=== PATIENT | female | born 1975 | race Caucasian/White ===

== ENCOUNTER 2018-03-24 21:28 | Emergency (ER) | payer OTHER ==
[2018-03-24 21:32] VITALS: BP 143/87; PULSE 80; TEMP 98; BMI 30.7
[2018-03-24] MEDS ORDERED: KETOROLAC TROMETHAMINE 60 MG/2 ML VIAL IM ONE (22:08)
[2018-03-24] MEDS ORDERED: KETOROLAC TROMETHAMINE 60 MG/2 ML VIAL ONE (22:09)
--- NOTE | 2018-03-24 22:13 | PDOC ---
History of Present Illness - General Chief Complaint: Pain Stated Complaint: LT ARM PAIN Time Seen by Provider: 03/24/18 21:39 History Source: Patient Exam Limitations: No Limitations - History of Present Illness Initial Comments: 03/24/18 22:08 Patient states had a severe case of bronchitis last week with severe coughing which causes severe spasm to her neck. States is radiating pain down her left shoulder and arm. States was seen by her PMD who gave her cyclobenzaprine and ibuprofen. Also treated with a taper pack of prednisone due to significant reactive airway from bronchitis. Patient states cough is improved however neck is progressively worsened. 03/24/18 22:54 Occurred: reports: last week Severity: reports: moderate, severe Pain Location: reports: neck, upper extremity (ideating pain from neck spasm into left arm) Associated Symptoms (Fall): headache, neck pain Past History - Travel Traveled outside of the country in the last 30 days: No Close contact w/someone who was outside of country & ill: No - Past Medical History Allergies/Adverse Reactions: Allergies Allergy/AdvReac Type Severity Reaction Status Date / Time No Known Allergies Allergy Verified 03/24/18 21:32 Home Medications: Ambulatory Orders Methocarbamol [Robaxin -] 1,500 mg PO Q8H PRN #20 tablet 03/24/18 Naproxen [Naprosyn -] 500 mg PO TID #30 tablet 03/24/18 Disorders: Yes (KIDNEY STONES.) - Surgical History Abdominal Surgery: Yes (TUMMY TUCK.) - Suicide/Smoking/Psychosocial Hx Smoking History: Never smoked Have you smoked in the past 12 months: No Number of Cigarettes Smoked Daily: 20 Information on smoking cessation initiated: No Hx Alcohol Use: No Drug/Substance Use Hx: No Substance Use Type: None Trauma Specific PMHX - Complaint Specific PMHX Back Injury: No Neck Injury: Yes Review of Systems - Review of Systems Able to Perform ROS?: Yes Is the patient limited Vietnamese proficient: Yes Constitutional: Yes: Symptoms Reported, See HPI, Malaise. No: Fever HEENTM: Yes: See HPI. No: Symptoms Reported Respiratory: Yes: Symptoms reported, See HPI. No: Cough, Orthopnea, Wheezing Musculoskeletal: Yes: Symptoms Reported, See HPI, Neck Pain, Joint Stiffness Neurological: Yes: Symptoms reported, See HPI All Other Systems: Reviewed and Negative *Physical Exam - Vital Signs Last Vital Signs Temp Pulse Resp BP Pulse Ox 98.0 F 80 16 143/87 98 03/24/18 21:29 03/24/18 21:29 03/24/18 21:29 03/24/18 21:29 03/24/18 21:29 - Physical Exam General Appearance: Yes: Nourished, Appropriately Dressed, Apparent Distress, Moderate Distress HEENT: positive: FREDY, Normal ENT Inspection, TMs Normal, Pharynx Normal Neck: positive: Tender, Supple, Other (patient with tight tense musculature on primarily left side extending from insertions of the sternocleidomastoid to upper trapezius. Able to reproduce pain to left arm with pressure tenderness at midpoint and insertion sites. Range of motion to left shoulder is reduced secondary to the spasm. Able to bend and and extend at elbow, strong grasp at hand) Respiratory/Chest: positive: Lungs Clear, Normal Breath Sounds. negative: Wheezing Musculoskeletal: positive: Normal Inspection, Muscle Spasm (Spasm noted to the paravertebral spinous muscles worse on the left, and very tight tense musculature. Able to reproduce tenderness with point rest or at midpoint trapezius that re-creates left arm pain.). negative: CVA Tenderness (L), Vertebral Tenderness Extremity: positive: Normal Capillary Refill, Tender (at shoulder, neurovascular intact to hand and arm.). 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 Patient has inversion to narcotics as has history of issues therefore will hold Valium and Percocet for severe pain and spasm and refer to PMD tomorrow for hopeful physical therapy. *DC/Admit/Observation/Transfer Diagnosis at time of Disposition: Torticollis - Discharge Dispostion Disposition: HOME Condition at time of disposition: Stable Decision to Admit order: No - Prescriptions Prescriptions: Methocarbamol [Robaxin -] 1,500 mg PO Q8H PRN #20 tablet PRN Reason: Muscle Spasms Naproxen [Naprosyn -] 500 mg PO TID #30 tablet - Referrals Referrals: Shaila Palafox [Primary Care Provider] - - Patient Instructions Printed Discharge Instructions: DI for Cervical Muscle Strain Additional Instructions: Rest, no heavy lifting or exercise until pain is resolved Hot soaks to neck and low back as often as possible/hot showers or Jacuzzis No massage or therapy until spasm is gone Continue Naprosyn 500 mg tablet, 1 tablet every 8 hours for the next 3 days then as needed for pain and swelling Robaxin 1500 mg tablet every 8 hours as needed that for 2 days then reduce to 750 mg as needed for spasm If not significant improvement within 24 hours with medication and rest regime, followup with private physician for change in medications and /or therapy. - Post Discharge Activity Forms/Work/School Notes: Back to Work
== END 2018-03-24 22:41 | disposition home or self-care (01) ==
LOC: JERFT 21:28
PROC: 3E0233Z Introduction of Anti-inflammatory into Muscle, Percutaneous Approach (ICD-10-PCS; principal; 2018-03-24)
DX: G24.3 Spasmodic torticollis (principal)
CPT/HCPCS: 99281-25

== ENCOUNTER 2019-05-03 20:06 | Emergency (ER) | payer OTHER ==
[2019-05-03 20:14] VITALS: BMI 31.6
--- NOTE | 2019-05-03 20:36 | PDOC ---
History of Present Illness - General Chief Complaint: Diarrhea Stated Complaint: LEFT TOE INFECTION Time Seen by Provider: 05/03/19 20:34 History Source: Patient Exam Limitations: No Limitations - History of Present Illness Initial Comments: Pt is a 43 yo F, with no significant PMH, who is presenting with complaints of diffuse, frothy, foul-smelling diarrhea x2 days. Pt states she has had a L great toe infection x1 month (ingrown toenail removal during a pedicure), initially treated with 7 days of bactrim and the symptoms improved. This week the pain and swelling in her L great toe returned, and she saw her crusher setter ( Dr. Sands). The crusher setter obtained x-ray of the L foot, which was concerning for "haziness around the base of the L toe" per patient, and he placed her on keflex TID. She also had outpatient labs drawn, but has not received the results. The pt states she has had diarrhea x2 days after starting the keflex, mild rash on her face, and is unable to keep down PO foods or fluid due to nausea and the diffuse diarrhea. The diarrhea is associated with crampy abdominal pain, which resolves with the diarrhea. Her toe continues to have purulent drainage and swelling. Pt denies any fevers/chills, headache, vision changes, syncope, chest pain, palpitations, SOB, vomiting, urinary symptoms, constipation, or leg swelling. Allergies: NKDA PCP: Dr. Wade Podiatry: Sh[facility]on Social: Pt denies any cigarette, alcohol, or drug use. Pt denies any recent travel or sick contacts. Surgical: no relevant history. Family: no relevant history. 05/03/19 21:24 Past History - Travel Traveled outside of the country in the last 30 days: No Close contact w/someone who was outside of country & ill: No - Past Medical History Allergies/Adverse Reactions: Allergies Allergy/AdvReac Type Severity Reaction Status Date / Time No Known Allergies Allergy Verified 05/03/19 20:14 Home Medications: Ambulatory Orders Methocarbamol [Robaxin -] 1,500 mg PO Q8H PRN #20 tablet 03/24/18 Naproxen [Naprosyn -] 500 mg PO TID #30 tablet 03/24/18 COPD: No Disorders: Yes (KIDNEY STONES.) - Surgical History Abdominal Surgery: Yes (TUMMY TUCK.) - Suicide/Smoking/Psychosocial Hx Smoking History: Former smoker Have you smoked in the past 12 months: No Number of Cigarettes Smoked Daily: 20 Information on smoking cessation initiated: No Hx Alcohol Use: No Drug/Substance Use Hx: No Substance Use Type: None Abd/GI Specific PMHX - Complaint Specific PMHX Colitis: No Diverticulitis: No Gall Bladder Disease: No GERD: No Hepatitis: No Irritable Bowel Synd (IBS): No Pancreatitis: No GI Ulcer Disease: No Review of Systems - Review of Systems Able to Perform ROS?: Yes Is the patient limited Malawian proficient: No Constitutional: Yes: Weight Stable. No: Chills, Diaphoresis, Fever, Loss of Appetite, Malaise, Weakness HEENTM: No: Blurred Vision, Double Vision, Nose Congestion, Throat Pain, Throat Swelling Respiratory: No: Cough, Orthopnea, Shortness of Breath Cardiac (ROS): No: Chest Pain, Edema, Irregular Heart Rate, Lightheadedness, Palpitations, Syncope, Chest Tightness ABD/GI: Yes: Diarrhea (frothy, diffuse, foul-smelling), Nausea, Abdominal cramping (associated after eating and with diarrhea). No: Abdominal Distended, Constipated, Poor Appetite, Poor Fluid Intake, Vomiting : No: Burning, Dysuria, Frequency, Flank Pain, Pain, Urgency Musculoskeletal: Yes: See HPI, Joint Pain (L first great toe), Joint Swelling. No: Back Pain, Muscle Pain, Muscle Weakness Integumentary: Yes: See HPI, Erythema. No: Bruising, Rash Neurological: No: Headache, Numbness, Paresthesia, Weakness, Dizziness Psychiatric: No: Sleep Pattern Change, Change in Appetite Endocrine: No: Increased Urine, Change in Weight Hematologic/Lymphatic: No: Anemia, Blood Clots, Easy Bleeding, Easy Bruising All Other Systems: Reviewed and Negative *Physical Exam - Vital Signs Last Vital Signs Temp Pulse Resp BP Pulse Ox 97.8 F 74 18 154/90 98 05/03/19 20:11 05/03/19 20:11 05/03/19 20:11 05/03/19 20:11 05/03/19 20:11 - Physical Exam Comments: Vitals stable, pt afebrile. Pt in NAD, obese body habitus. Pt alert and oriented x3. narrative writer generally intact, muscular strength and sensation intact. No midline spinal tenderness, step-offs, or crepitus. Head normocephalic, atraumatic. Eyes PERRLA, EOMI. Oropharynx without erythema or exudates, no LAD b/l. No nasal congestion, hearing intact. Clear heart sounds, S1/S2, no JVD, b/l pedal edema, or heart murmur. Clear lung sounds, no respiratory distress, wheezes, crackles, or accessory muscle use. No abdominal or CVA tenderness to palpation, no rebound, no guarding. Abdomen soft, non-distended, and with hyperactive bowel sounds. Edema to L first great toe, mild erythema of medial nailbed, with no active drainage at this time. No erythematous streaking down the toe or foot. Skin otherwise without jaundice or rash. 05/03/19 21:06 ED Treatment Course - LABORATORY CBC & Chemistry Diagram: 05/03/19 21:07 05/03/19 21:07 Medical Decision Making - Medical Decision Making Pt was seen at bedside, also will be seen by attending Dr. Cherry. Pt presenting with complaints of diffuse, frothy, foul-smelling diarrhea x2 days. Pt states she has had a L great toe infection x1 month (ingrown toenail removal during a pedicure), initially treated with 7 days of bactrim and the symptoms improved. This week the pain and swelling in her L great toe returned, and she saw her crusher setter (Dr. Sands). The crusher setter obtained x-ray of the L foot, which was concerning for "haziness around the base of the L toe" per patient, and he placed her on keflex TID. She also had outpatient labs drawn, but has not received the results. The pt states she has had diarrhea x2 days after starting the keflex, mild rash on her face, and is unable to keep down PO foods or fluid due to nausea and the diffuse diarrhea. The diarrhea is associated with crampy abdominal pain, which resolves with the diarrhea. Her toe continues to have purulent drainage and swelling. Pt denies any fevers/chills, headache, vision changes, syncope, chest pain, palpitations, SOB, vomiting, urinary symptoms, constipation, or leg swelling. Diffuse diarrhea 2/2 to abx, potential C diff, obtaining stool culture and C diff Ag. Will also obtain foot x-ray and labs to eval for infection, inflammation vs osteolmyelitis (CBC, CMP, ESR, CRP). Provided 1 L IV NS and 1 g IV ofirmev for improvement of pain and likely dehydration. Will continue to reassess pt and monitor for symptomatic improvement. 05/03/19 21:08 CBC and CMP WNL CRP <.03 Urine negative Pt taken for foot x-ray 05/03/19 21:59 X-ray showed no sign of acute fractures or joint deformities. Placed f/u call for stool culture/c-diff; pt advised to take probiotic. Will stop pts keflex, and have her f/u with PCP and crusher setter. No active cellulitis noted at this time. Pt can be discharged to home with strict return precautions provided. 05/03/19 23:26 *DC/Admit/Observation/Transfer Diagnosis at time of Disposition: Antibiotic causing adverse effect Diarrhea Qualifiers: Diarrhea type: unspecified type Qualified Code(s): R19.7 - Diarrhea, unspecified - Discharge Dispostion Disposition: HOME Condition at time of disposition: Good Decision to Admit order: No - Referrals Referrals: Kelby Monroe [Staff Physician] - Matthew Wade MD [Staff Physician] - - Patient Instructions Printed Discharge Instructions: DI for Diarrhea and Traveler's Diarrhea -- Adult Additional Instructions: You were seen in the ER today for diarrhea after taking antibiotics. The results of your labs and imaging today were normal. Please follow-up with your primary care doctor and crusher setter within 1-2 days to discuss your visit and make sure your symptoms have improved. Please return to the ER if you have any worsening pain, worsening redness or drainage from your toe, development of fevers or chills, loss of consciousness, inability to tolerate food or fluids, or any other concerns. - Post Discharge Activity
[2019-05-03] MEDS ORDERED: SODIUM CHLORIDE 1,000 ML IV STA (20:53)
[2019-05-03] MEDS ORDERED: ACETAMINOPHEN 1000 MG/100 ML VIAL (NON FORMULARY) IVPB ONE (20:53)
[2019-05-03] MEDS ORDERED: ACETAMINOPHEN INJECTION 100 ML IVPB ONE (21:00)
[2019-05-03 21:29] LABS: BASO % 0.5 % (0-2.0); EOS % 1.9 % (0-4.5); HEMATOCRIT 36.4 % (32.4-45.2); HEMOGLOBIN 12.3 GM/dL (10.7-15.3); LYMPH % 35.2 % (8-40); MCH 28.3 pg (25.7-33.7); MCHC 33.7 g/dl (32.0-36.0); MEAN CELL VOLUME 83.9 fl (80-96); MEAN PLT VOLUME 7.2 fl (7.5-11.1); MONO % 5.7 % (3.8-10.2); NEUT % 56.7 % (42.8-82.8); PLATELET COUNT 284 K/MM3 (134-434); RBC 4.34 M/mm3 (3.60-5.2); RDW 13.4 % (11.6-15.6); WHITE BLOOD COUNT 6.8 K/mm3 (4.0-10.0)
[2019-05-03 21:46] LABS: ALBUMIN 3.8 g/dl (3.4-5.0); ALK PHOS 41 U/L (45-117); ANION GAP 3 MMOL/L (8-16); BILIRUBIN,TOTAL 0.1 mg/dL (0.2-1); BLOOD UREA NITROGEN 10.7 mg/dL (7-18); CALCIUM 8.9 mg/dL (8.5-10.1); CHLORIDE 107 mmol/L (98-107); CO2 30 mmol/L (21-32); CREATININE 0.8 mg/dL (0.55-1.3); GLUCOSE,RANDOM 97 mg/dL (74-106); POTASSIUM 4.2 mmol/L (3.5-5.1); SGOT/AST 16 U/L (15-37); SGPT/ALT 27 U/L (13-61); SODIUM 141 mmol/L (136-145); TOT PROT 7.1 g/dl (6.4-8.2)
[2019-05-03 22:03] VITALS: PULSE 60
--- NOTE | 2019-05-03 23:41 | PDOC ---
Documentation entered by Mayra Bazzi SCRIBE, acting as scribe for Clint Cherry MD. Clint Cherry MD: This documentation has been prepared by the Rose Mary robles Nirvannie, SCRIBE, under my direction and personally reviewed by me in its entirety. I confirm that the documentation accurately reflects all work, treatment, procedures, and medical decision making performed by me. Attending Attestation - Resident Resident Name: KristalCornelia - ED Attending Attestation I have performed the following: I have examined & evaluated the patient, The case was reviewed & discussed with the resident, I agree w/resident's findings & plan, Exceptions are as noted - HPI HPI: 05/03/19 21:39 The patient is a 43 year old female, with a significant past medical history of kidney stones, who presents to the emergency department with 4 days persistent, watery, foul-smelling diarrhea with associated weakness, nausea, and headache. Pt has been undergoing treatment for a L 1st toe infection. She states that she developed an infection after a pedicure last month. Since then, she has completed a course of bactrim and was recently started on keflex by her demo specialist. After starting the keflex, she began to experience profuse watery diarrhea. Pt also notes that her demo specialist got a X ray of her toe and started her on the keflex because of a possible bone infection. Pt denies F/C. States that her toe feels significantly better. Allergies: NKDA - Physicial Exam PE: 05/03/19 21:39 GENERAL: Awake, alert, and fully oriented, in no acute distress. HEAD: No signs of trauma EYES: PERRLA, EOMI, sclera anicteric, conjunctiva clear ENT: Auricles normal inspection, hearing grossly normal, nares patent, oropharynx clear without exudates. Moist mucosa NECK: Nontender, no stepoffs, Normal ROM, supple, no lymphadenopathy, JVD, or masses LUNGS: Breath sounds equal, clear to auscultation bilaterally. No wheezes, and no crackles HEART: Regular rate and rhythm, normal S1 and S2, no murmurs, rubs or gallops ABDOMEN: Soft, nontender, normoactive bowel sounds. No guarding, no rebound. No masses EXTREMITIES: + L 1st toe with mild tenderness, no erythema, no induration, no fluctuance, no drainage, Normal range of motion, no edema. No clubbing or cyanosis. NEUROLOGICAL: Cranial nerves II through XII intact. 5/5 strength and sensation in all extremities, Normal speech, normal gait, normal cerebellar function SKIN: Warm, Dry, normal turgor, no rashes or lesions noted. - Medical Decision Making 05/03/19 23:33 43 F with diarrhea, likely 2/2 abx use. Pt with no fevers, benign abdomen. Low suspicion for C diff colitis, but will send stool studies. Pt's toe does not appear infected at this time. Will obtain XR to r/o osteo, though extremely low suspicion. - Labs - C diff studies - XR L toes 05/03/19 23:34 Labs wnl, no leukocytosis XR negative for osteo Will DC keflex as it is likely causing pt's severe diarrhea Hold tx for C diff for now, pending stool studies Pt is well appearing, with normal vitals. Clinically stable for DC at this time. I discussed the physical exam findings, ancillary test results and final diagnoses with the patient. I answered all of the patient's questions. The patient was satisfied with the care received and felt comfortable with the discharge plan and treatment plan. The patient agrees to follow up with the primary care physician within 24-72 hours.
[2019-05-04 00:03] LABS: ERYTHROCYTE SEDIMENTATION RATE 2 mm/hr (0-20)
[2019-05-04 00:05] VITALS: BP 125/77; TEMP 98.9
--- NOTE | 2019-05-04 11:17 | EKG ---
Test Reason : Blood Pressure : / mmHG Vent. Rate : 062 BPM Atrial Rate : 062 BPM P-R Int : 188 ms QRS Dur : 076 ms QT Int : 412 ms P-R-T Axes : 061 023 016 degrees QTc Int : 418 ms NORMAL SINUS RHYTHM NORMAL ECG WHEN COMPARED WITH ECG OF 29-DEC-2001 17:25, NO SIGNIFICANT CHANGE WAS FOUND Confirmed by HUMBERTO BROWN MD ([id number]) on 05/04/2019 11:16:38 AM Referred By: Confirmed By:HUMBERTO BROWN MD
== END 2019-05-04 00:17 | disposition home or self-care (01) ==
LOC: JER 20:06
PROC: 3E033NZ Introduction of Analgesics, Hypnotics, Sedatives into Peripheral Vein, Percutaneous Approach (ICD-10-PCS; principal; 2019-05-03)
PROC: 3E0337Z Introduction of Electrolytic and Water Balance Substance into Peripheral Vein, Percutaneous Approach (ICD-10-PCS; 2019-05-03)
DX: R19.7 Diarrhea, unspecified (principal); T50.905A Adverse effect of unspecified drugs, medicaments and biological substances, initial encounter; Y92.89 Other specified places as the place of occurrence of the external cause
CPT/HCPCS: 36415; 73630-TC-LT; 80053; 84703; 85025; 85651; 86140; 87045; 87046; 87324; 87449; 93005; 93010; 99283-25; J0131; J7030

== ENCOUNTER 2019-07-25 16:56 | Emergency (ER) | payer OTHER ==
[2019-07-25 17:08] VITALS: BP 152/85; PULSE 63; BMI 30.7
[2019-07-25] MEDS ORDERED: ACETAMINOPHEN 1000 MG/100 ML VIAL (NON FORMULARY) IVPB ONE (17:56)
[2019-07-25] MEDS ORDERED: LACTATED RINGERS SOLUTION 1000 ML INFUS.BAG IV ONE (17:56)
[2019-07-25] MEDS ORDERED: ACETAMINOPHEN INJECTION 100 ML IVPB ONE (18:07)
--- NOTE | 2019-07-25 18:08 | PDOC ---
Attending Attestation - Resident Resident Name: Libra Farris - ED Attending Attestation I have performed the following: I have examined & evaluated the patient, The case was reviewed & discussed with the resident, I agree w/resident's findings & plan, Exceptions are as noted - HPI HPI: 07/25/19 18:14 Ms. Rand is a 43 yo F who presents to the ER with a complaint headache Pt has a history of kidney stones she has noted a right sided headache that has been present for the past 2 days No head trauma No fevers or chills Pain is described as throbbing, No photophobia, phonophobia, or N/V. Pt has been taking Tylenol and would not have come in to the ER today had she not been noted to have right facial drooping Pt reports that the facial drooping was present for 30 minutes and self resolved 07/25/19 18:17 - Physicial Exam PE: 07/25/19 18:08 GENERAL: The patient is in no acute distress. HEAD: Normal EYES: PERRLA, EOMI, sclera anicteric, conjunctiva clear. ENT: Ears normal, nares patent, oropharynx clear without exudates. Moist mucous membranes. NECK: Normal range of motion, supple LUNGS: Breath sounds equal, clear to auscultation bilaterally. HEART:Regular rate and rhythm, normal S1 and S2 without murmur, rub or gallop. ABDOMEN: Soft, nontender, normoactive bowel sounds. EXTREMITIES: Normal range of motion, no edema. NEUROLOGICAL: Cranial nerves II through XII grossly intact. Normal speech. No focal neurological deficits. MUSCULOSKELETAL: Back non-tender to palpation, no CVA tenderness SKIN: Warm, Dry, normal turgor, no rashes or lesions noted. - Medical Decision Making 07/25/19 18:17 Pt presenting with a complaint of headache no head trauma or fevers Pt does note facial drooping which has resolved Will do: Labs IV Tylenol/Reglan CT head Re Assess 07/25/19 19:01 Laboratory Tests 07/25/19 07/25/19 18:09 18:09 WBC 7.5 Hgb 12.2 Hct 36.4 Plt Count 281 BUN 13.3 Creatinine 0.7 Called by the lab re potassium being 8, grossly hemolyzed Will do repeat CMP Pt states she has a strong family history of aneurysm Will plan to do CT with contrast Will re asses 07/25/19 20:55 EKG: Twelve-lead EKG was performed and reviewed by me. There is normal sinus rhythm with a normal rate. The axis is normal. The intervals are normal. There are no ST or T wave abnormalities. Impression: Normal twelve-lead EKG CT head - negative CTA head - no aneurysm found Headache has resolved Will discharge to home
[2019-07-25] MEDS ORDERED: METOCLOPRAMIDE HCL INJECTION 10 MG/2 ML VIAL IVPB ONE (18:10)
--- NOTE | 2019-07-25 18:10 | PDOC ---
History of Present Illness - General Chief Complaint: Headache Stated Complaint: HEADACHE Time Seen by Provider: 07/25/19 17:34 History Source: Patient Exam Limitations: No Limitations - History of Present Illness Initial Comments: 07/25/19 18:04 43 yo F PMH kidney stones, presenting with headache. Notably, was at our ED 2.5 months ago with diarrhea after getting Keflex for a toe infection. States that it has been there for the past 2 days, R sided, without photophobia, phonophobia , or N/V. Notably, experienced R facial droop, witnessed by daughter, lasting about 30-60 minutes, which is what prompted her to come in. This droop has since resolved. Patient reports that she had L middle finger pain under the nail yesterday, peeled it back, and released a lot of green pus. Put prior ointment from toe infection on it. Reports that multiple family members have had brain aneurysms. Specifically denies CP, SOB, abdominal pain, fevers/chills, constipation/ diarrhea. Past History - Past Medical History Allergies/Adverse Reactions: Allergies Allergy/AdvReac Type Severity Reaction Status Date / Time No Known Allergies Allergy Verified 05/03/19 20:14 Home Medications: Ambulatory Orders Methocarbamol [Robaxin -] 1,500 mg PO Q8H PRN #20 tablet 03/24/18 Naproxen [Naprosyn -] 500 mg PO TID #30 tablet 03/24/18 COPD: No Disorders: Yes (KIDNEY STONES.) - Surgical History Abdominal Surgery: Yes (HIPOLITO CAICEDO.) - Psycho Social/Smoking Cessation Hx Smoking History: Never smoked Have you smoked in the past 12 months: No Number of Cigarettes Smoked Daily: 20 Hx Alcohol Use: No Drug/Substance Use Hx: No Substance Use Type: None Review of Systems - Review of Systems Able to Perform ROS?: Yes Constitutional: No: Chills, Fever HEENTM: No: Eye Pain, Blurred Vision, Recent change in vision, Double Vision, Ear Pain, Ear Discharge, Hearing Loss, Throat Pain Respiratory: No: Cough, Orthopnea, Shortness of Breath Cardiac (ROS): No: Chest Pain, Edema, Irregular Heart Rate ABD/GI: No: Abdominal Distended, Constipated, Diarrhea, Nausea, Vomiting : Yes: Frequency. No: Burning, Dysuria, Discharge Musculoskeletal: No: Back Pain, Muscle Pain Integumentary: No: Bruising, Dryness Neurological: Yes: Headache (R sided). No: Numbness, Tingling, Weakness *Physical Exam - Vital Signs Last Vital Signs Temp Pulse Resp BP Pulse Ox 98.1 F 63 19 152/85 97 07/25/19 17:05 07/25/19 17:05 07/25/19 17:05 07/25/19 17:05 07/25/19 17:05 - Physical Exam Comments: 07/25/19 18:20 Gen: well-developed, well-nourished, in no apparent distress Neuro: CN II-XII intact, EOMI, FTN intact HEENT: atraumatic, normocephalic Neck: trachea midline, supple neck CV: regular rate, regular rhythm Pulm: CTA b/l, no wheezing Abd: soft, non-distended, non-tender Skin: warm, dry Extr: no edema, 2+ pulses MSK: full ROM, no deformities ED Treatment Course - LABORATORY CBC & Chemistry Diagram: 07/25/19 18:09 07/25/19 19:03 Medical Decision Making - Medical Decision Making 07/25/19 18:25 Concern for TIA vs transient Ponce's palsy vs complex migraine. - CBC, CMP - UA, UC, U preg - CT head non con 07/25/19 19:00 K 8.1 with moderate hemolysis, will get repeat CMP and EKG. 07/25/19 19:23 EKG sinus bradycardia, no peaked T waves. 07/25/19 19:28 Patient reassessed, headache appears to have resolved. Will ctm. 07/25/19 20:02 Repeat potassium level at 4 Discharge - Discharge Information Problems reviewed: Yes Clinical Impression/Diagnosis: Headache Condition: Improved Disposition: HOME - Admission No - Follow up/Referral Referrals: Matthew Wade MD [Primary Care Provider] - - Patient Discharge Instructions Patient Printed Discharge Instructions: DI for Headache Additional Instructions: You were seen with a headache. Your labs were unremarkable and your symptoms improved with medication. Your imaging was also seen to be unconcerning. Please follow up with your primary care doctor. You may also call Dr. Smith with neurology ([phone]) to make a follow up appointment. Return to the ED if you develop worsening headaches or new weakness, numbness, or loss of sensation. - Post Discharge Activity Work/Back to School Note: Back to Work
[2019-07-25 18:17] LABS: BASO % 1.4 % (0-2.0); EOS % 2.3 % (0-4.5); HEMATOCRIT 36.4 % (32.4-45.2); HEMOGLOBIN 12.2 GM/dL (10.7-15.3); MCH 27.9 pg (25.7-33.7); MCHC 33.4 g/dl (32.0-36.0); MEAN CELL VOLUME 83.6 fl (80-96); MEAN PLT VOLUME 7.5 fl (7.5-11.1); MONO % 4.8 % (3.8-10.2); NEUT % 61.5 % (42.8-82.8); PLATELET COUNT 281 K/MM3 (134-434); RBC 4.36 M/mm3 (3.60-5.2); RDW 13.1 % (11.6-15.6); WHITE BLOOD COUNT 7.5 K/mm3 (4.0-10.0)
[2019-07-25 18:46] VITALS: TEMP 98
[2019-07-25] MEDS ORDERED: METOCLOPRAMIDE HCL INJECTION 10 MG/2 ML VIAL ONE (18:48)
[2019-07-25 18:52] LABS: ALBUMIN 3.8 g/dl (3.4-5.0); BILIRUBIN,TOTAL 0.2 mg/dL (0.2-1); BLOOD UREA NITROGEN 13.3 mg/dL (7-18); CALCIUM 8.6 mg/dL (8.5-10.1); CREATININE 0.7 mg/dL (0.55-1.3); TOT PROT 7.4 g/dl (6.4-8.2)
[2019-07-25 18:57] LABS: POTASSIUM 8.1 mmol/L (3.5-5.1)
[2019-07-25 19:07] LABS: URINE APPEARANCE CLEAR; URINE BILIRUBIN NEGATIVE (NEGATIVE); URINE COLOR YELLOW; URINE GLUCOSE (UA) NEGATIVE (NEGATIVE); URINE KETONE NEGATIVE (NEGATIVE); URINE LEUK ESTERASE NEGATIVE (NEGATIVE); URINE NITRITE NEGATIVE (NEGATIVE); URINE PROTEIN NEGATIVE (NEGATIVE); URINE UROBILINOGEN 0.2 mg/dL (0.2-1.0)
[2019-07-25 19:34] LABS: ALBUMIN 3.6 g/dl (3.4-5.0); BILIRUBIN,TOTAL 0.2 mg/dL (0.2-1); BLOOD UREA NITROGEN 12.3 mg/dL (7-18); CALCIUM 8.6 mg/dL (8.5-10.1); CREATININE 0.5 mg/dL (0.55-1.3); TOT PROT 6.5 g/dl (6.4-8.2)
--- NOTE | 2019-07-26 16:49 | EKG ---
Test Reason : Blood Pressure : / mmHG Vent. Rate : 050 BPM Atrial Rate : 050 BPM P-R Int : 176 ms QRS Dur : 080 ms QT Int : 452 ms P-R-T Axes : 019 015 -02 degrees QTc Int : 412 ms SINUS BRADYCARDIA OTHERWISE NORMAL ECG WHEN COMPARED WITH ECG OF 03-MAY-2019 21:54, NO SIGNIFICANT CHANGE WAS FOUND Confirmed by CHRIS LEWIS MD ([id number]) on 07/26/2019 4:49:41 PM Referred By: Confirmed By:CHRIS LEWIS MD
== END 2019-07-25 22:32 | disposition home or self-care (01) ==
LOC: JER 16:56
PROC: 3E033NZ Introduction of Analgesics, Hypnotics, Sedatives into Peripheral Vein, Percutaneous Approach (ICD-10-PCS; principal; 2019-07-25)
PROC: 3E033GC Introduction of Other Therapeutic Substance into Peripheral Vein, Percutaneous Approach (ICD-10-PCS; 2019-07-25)
DX: R51 Headache (principal); Z87.442 Personal history of urinary calculi
CPT/HCPCS: 36415; 70450-TC; 70496-TC; 80053; 81003; 84703; 85025; 87086; 93005; 93010; 99283-25; J0131

== ENCOUNTER 2021-10-09 22:26 | Emergency (ER) | payer OTHER ==
[2021-10-09 23:09] VITALS: BP 149/83; PULSE 72; TEMP 98.4; BMI 34.7
[2021-10-09] MEDS ORDERED: predniSONE 20 MG TABLET (UD) PO ONE (23:55)
[2021-10-09] MEDS ORDERED: ALBUTEROL SO4 HFA INHALER IH ONE (23:55)
[2021-10-10] MEDS ORDERED: ALBUTEROL SO4 2.5/IPRATROPIUM 0.5 INH SOL 3 ML VIAL.NEB. NEB ONE
[2021-10-10] MEDS ORDERED: predniSONE 20 MG TABLET (UD) ONE
[2021-10-10] MEDS ORDERED: ALBUTEROL SO4 0.083% IH SOL 2.5 MG/3 ML VIAL.NEB. NEB ONE (00:02)
[2021-10-10] MEDS ORDERED: ALBUTEROL SO4 HFA INHALER IH ONE (00:17)
== END 2021-10-10 02:16 | disposition home or self-care (01) ==
LOC: JER 22:26
PROC: 3E0F7GC Introduction of Other Therapeutic Substance into Respiratory Tract, Via Natural or Artificial Opening (ICD-10-PCS; principal; 2021-10-09)
DX: J40 Bronchitis, not specified as acute or chronic (principal)
CPT/HCPCS: 71046-TC-FY; 87651; 87804; 99284-25; C9803; U0003; U0005

== ENCOUNTER 2022-08-17 10:18 | Emergency (ER) | payer OTHER ==
[2022-08-17 10:32] VITALS: BP 160/89; PULSE 73; RESP 18; TEMP 98.4; BMI 33.6
[2022-08-17] MEDS ORDERED: KETOROLAC TROMETHAMINE 30 MG/1 ML VIAL IVPB ONE (11:05)
[2022-08-17] MEDS ORDERED: KETOROLAC TROMETHAMINE 30 MG/1 ML VIAL ONE (11:28)
[2022-08-17 12:06] LABS: EPI CELLS 5 /uL (0-25.1); HYALINE CASTS 0 /uL (0-3.1); URINE APPEARANCE CLEAR; URINE BACTERIA 33 /uL (0-1359); URINE BILIRUBIN NEGATIVE (NEGATIVE); URINE COLOR DK YELLOW; URINE GLUCOSE (UA) NEGATIVE (NEGATIVE); URINE KETONE NEGATIVE (NEGATIVE); URINE LEUK ESTERASE NEGATIVE (NEGATIVE); URINE NITRITE NEGATIVE (NEGATIVE); URINE PROTEIN 1+ (NEGATIVE); URINE RBC 3914 /uL (0-23.9); URINE UROBILINOGEN 0.2 mg/dL (0.2-1.0); URINE WBC 4 /uL (0-25.8)
[2022-08-17 12:58] LABS: BASO % 0.4 % (0-2.0); EOS % 1.3 % (0-4.5); HEMATOCRIT 33.2 % (32.4-45.2); HEMOGLOBIN 11.4 GM/dL (10.7-15.3); LYMPH % 29.5 % (8-40); MCH 28.3 pg (25.7-33.7); MCHC 34.3 g/dl (32.0-36.0); MEAN CELL VOLUME 82.7 fl (80-96); MEAN PLT VOLUME 6.8 fl (7.5-11.1); MONO % 5.8 % (3.8-10.2); PLATELET COUNT 261 10^3/uL (134-434); RBC 4.02 M/mm3 (3.60-5.2); RDW 13.5 % (11.6-15.6)
[2022-08-17 13:28] LABS: ALBUMIN 3.5 g/dl (3.4-5.0)
[2022-08-17 13:29] LABS: BLOOD UREA NITROGEN 9.9 mg/dL (7-18)
[2022-08-17 13:31] LABS: CREATININE 0.6 mg/dL (0.55-1.3)
[2022-08-17 13:33] LABS: BILIRUBIN,TOTAL 0.2 mg/dL (0.2-1); TOT PROT 6.7 g/dl (6.4-8.2)
== END 2022-08-17 14:00 | disposition home or self-care (01) ==
LOC: JER 10:18
PROC: 3E0333Z Introduction of Anti-inflammatory into Peripheral Vein, Percutaneous Approach (ICD-10-PCS; principal; 2022-08-17)
DX: N93.9 Abnormal uterine and vaginal bleeding, unspecified (principal)
CPT/HCPCS: 36415; 76830-TC; 80053; 81003; 84703; 85025; 86850; 86900; 86901; 87077; 87086; 99284-25

== ENCOUNTER 2022-09-04 04:29 | Day surgery (SDC) | payer OTHER ==
[2022-08-30 16:28] VITALS: BMI 33.6
[2022-09-04] MEDS ORDERED: MIDAZOLAM HCL 2 MG/2 ML SINGLE DOSE VIAL ONE (12:30)
[2022-09-04] MEDS ORDERED: PROPOFOL 20 ML ONE (13:07)
[2022-09-04] MEDS ORDERED: ONDANSETRON 4 MG/2 ML VIAL IVPUSH PRN ×2 (13:26→14:30)
[2022-09-04] MEDS ORDERED: oxyCODONE HCL 5 MG TABLET PO PRN ×2 (13:26→14:30)
[2022-09-04] MEDS ORDERED: LACTATED RINGERS SOLUTION 1,000 ML IV SCH (13:30)
[2022-09-04] MEDS ORDERED: IBUPROFEN 600 MG TABLET (FP) PO PRN (14:30)
[2022-09-04] MEDS ORDERED: IBUPROFEN 800 MG/8 ML IJ IVPB PRN (14:30)
[2022-09-04] MEDS ORDERED: ELECTROLYTE-148 SOLN 1,000 ML IV SCH (14:30)
[2022-09-04 15:17] VITALS: RESP 20
[2022-09-04 16:21] VITALS: BP 113/72; PULSE 64; TEMP 98.5
== END 2022-09-04 16:22 | disposition home or self-care (01) ==
LOC: JASU-SURG 04:29
PROVIDERS: ATTEND Obstetrics & Gynecology
PROC: 0UB98ZX Excision of Uterus, Via Natural or Artificial Opening Endoscopic, Diagnostic (ICD-10-PCS; principal; 2022-09-04 11:30)
PROC: 0UDB7ZZ Extraction of Endometrium, Via Natural or Artificial Opening (ICD-10-PCS; 2022-09-04 11:30)
DX: N92.6 Irregular menstruation, unspecified (principal); N84.0 Polyp of corpus uteri
CPT/HCPCS: 81025; 88305-TC; 94760

== ENCOUNTER 2023-09-22 17:57 | Emergency (ER) | payer OTHER ==
[2023-09-22 18:04] VITALS: BP 133/90; PULSE 81; RESP 18; TEMP 97.6; BMI 29.2
[2023-09-22] MEDS ORDERED: LACTATED RINGERS SOLUTION 1000 ML INFUS.BAG IV ONE (20:11)
[2023-09-22] MEDS ORDERED: FAMOTIDINE 20 MG/50 ML IVPB 20 MG/50 ML MG IVPB ONE ×2 (20:11→20:31)
[2023-09-22] MEDS ORDERED: ONDANSETRON 4 MG/2 ML VIAL IVPUSH ONE (20:11)
[2023-09-22] MEDS ORDERED: ONDANSETRON 4 MG/2 ML VIAL ONE (20:30)
[2023-09-22] MEDS ORDERED: METOCLOPRAMIDE HCL INJECTION 10 MG/2 ML VIAL IVPUSH ONE (20:40)
[2023-09-22] MEDS ORDERED: METOCLOPRAMIDE HCL INJECTION 10 MG/2 ML VIAL ONE (20:40)
[2023-09-22] MEDS ORDERED: ACETAMINOPHEN 1000 MG/100 ML BAG IVPB ONE (20:43)
[2023-09-22] MEDS ORDERED: ACETAMINOPHEN INJECTION 100 ML IVPB ONE (20:56)
[2023-09-22 20:59] LABS: BASO % 0.3 % (0-2.0); EOS % 0.7 % (0-4.5); HEMOGLOBIN 10.6 GM/dL (10.7-15.3); MCH 25.4 pg (25.7-33.7); MCHC 33.1 g/dl (32.0-36.0); MEAN CELL VOLUME 76.8 fl (80-96); MONO % 3.4 % (3.8-10.2); NEUT % 81.6 % (42.8-82.8); PLATELET COUNT 278 10^3/uL (134-434); RBC 4.17 M/mm3 (3.60-5.2); RDW 14.7 % (11.6-15.6)
[2023-09-22 21:24] LABS: HCG,QUALITATIVE URINE Negative
[2023-09-22 21:40] LABS: ALBUMIN 3.6 g/dl (3.4-5.0); BILIRUBIN,TOTAL 0.4 mg/dL (0.2-1); BLOOD UREA NITROGEN 8.9 mg/dL (7-18); CALCIUM 8.8 mg/dL (8.5-10.1); CREATININE 0.5 mg/dL (0.55-1.3); MAGNESIUM 2.1 mg/dL (1.8-2.4); POTASSIUM 3.9 mmol/L (3.5-5.1); TOT PROT 6.7 g/dl (6.4-8.2)
[2023-09-22 21:40] LABS: PH,URINE 8.5 (5.0-8.0); URINE APPEARANCE CLEAR; URINE BILIRUBIN NEGATIVE (NEGATIVE); URINE COLOR YELLOW; URINE GLUCOSE (UA) NEGATIVE (NEGATIVE); URINE KETONE 1+ (NEGATIVE); URINE LEUK ESTERASE NEGATIVE (NEGATIVE); URINE NITRITE NEGATIVE (NEGATIVE); URINE PROTEIN TRACE (NEGATIVE); URINE UROBILINOGEN 0.2 mg/dL (0.2-1.0)
== END 2023-09-22 22:45 | disposition home or self-care (01) ==
LOC: JER 17:57
PROC: 3E033GC Introduction of Other Therapeutic Substance into Peripheral Vein, Percutaneous Approach (ICD-10-PCS; principal; 2023-09-22)
PROC: 3E033GC Introduction of Other Therapeutic Substance into Peripheral Vein, Percutaneous Approach (ICD-10-PCS; 2023-09-22)
PROC: 3E033NZ Introduction of Analgesics, Hypnotics, Sedatives into Peripheral Vein, Percutaneous Approach (ICD-10-PCS; 2023-09-22)
DX: J06.9 Acute upper respiratory infection, unspecified (principal); R51.9 Headache, unspecified; R11.2 Nausea with vomiting, unspecified; R05.9 Cough, unspecified; R53.81 Other malaise; R07.0 Pain in throat; Z20.822 Contact with and (suspected) exposure to COVID-19
CPT/HCPCS: 0241U-QW; 36415; 80053; 81003; 83690; 83735; 84703; 85025; 87086; 87651; 99284-25